=== PATIENT | male | born 1950 | race Caucasian/White ===

== ENCOUNTER 2019-08-09 11:10 | Emergency (ER) | payer MEDICARE, OTHER, SELFPAY ==
[2019-08-09] VITALS (9 sets, daily range): BP systolic 160–185; BP diastolic 57–67; PULSE 55–63; RESP 12–21; TEMP 36.6; O2SAT 91–100; BMI 26.5
--- NOTE | 2019-08-09 11:33 | PC.NURSE ---
reports dialysis today pre weight 70.2 kg post weight 67.9kg. at [place].
--- NOTE | 2019-08-09 11:49 | ED_ITS ---
HPI - SOB/Dyspnea General Chief Complaint: Shortness of Breath/Dyspnea Stated Complaint: pain in left thigh,cough Time Seen by Provider: 08/09/19 11:37 Source: patient Mode of arrival: Family Vehicle Limitations: no limitations History of Present Illness HPI Narrative: Patient is a 69-year-old male with history of hemodialysis, peripheral vascular disease, coronary artery disease hypertension, presenting today with increasing shortness of breath and left hip pain. He flew here from [place] he did arrange for dialysis to happen while he is here he had dialysis today. However he is having increasing shortness of breath and cough. He denies fever or chills. He also having worsening left leg pain he denies any falls. He says he has peripheral vascular disease for which he takes Plavix for. Pain is worse in his thigh. It is worse when he is walking but continues to have pain now. He denies his foot being cold. Related Data Home Medications Medication Instructions Recorded Confirmed Lactobac #2-Bifido #1-S. therm 1 cap PO BID 08/09/19 08/09/19 [Visbiome] albuterol sulfate [Ventolin HFA] 1 puff INHALATION Q6H PRN 08/09/19 08/09/19 amlodipine 10 mg PO DAILY 08/09/19 08/09/19 aspirin 81 mg PO MOWEFR 08/09/19 08/09/19 atorvastatin 80 mg PO DAILY 08/09/19 08/09/19 cinacalcet 60 mg PO DAILY 08/09/19 08/09/19 clopidogrel 75 mg PO DAILY 08/09/19 08/09/19 fluticasone furoate-vilanterol 1 inh INHALATION DIRECTED 08/09/19 08/09/19 [Breo Ellipta] fluticasone propionate [Flovent 1 inh INHALATION BID 08/09/19 08/09/19 Diskus] ipratropium bromide 1 spray INTRANASAL DIRECTED 08/09/19 08/09/19 lanthanum 1,000 mg PO PC 08/09/19 08/09/19 levothyroxine 150 mcg PO DAILY 08/09/19 08/09/19 lisinopril 10 mg PO DAILY 08/09/19 08/09/19 melatonin 2 tab PO BEDTIME 08/09/19 08/09/19 metoprolol succinate 50 mg PO DAILY 08/09/19 08/09/19 pantoprazole 40 mg PO DAILY 08/09/19 08/09/19 triamcinolone acetonide 1 applic TOPICAL DIRECTED 08/09/19 08/09/19 Previous Rx's Medication Instructions Recorded hydrocodone-acetaminophen [Friedens] 1 tab PO Q6H PRN #10 tab 08/09/19 Allergies Allergy/AdvReac Type Severity Reaction Status Date / Time contrast dye Allergy Severe Swelling Uncoded 08/09/19 12:07 of Lip/Tongue/Throat Review of Systems Review of Systems ROS Unobtainable: All systems reviewed & are unremarkable except as noted in HPI and below Constitutional Constitutional: Denies chills, Denies fatigue and Denies fever(s) Eyes Eyes: Denies change in vision, Denies eye discharge, Denies irritation and Denies loss of vision ENT Ears, Nose, Mouth, and Throat: Denies change in voice, Denies neck pain and Denies sore throat Cardiovascular Cardiovascular: Denies chest pain, Denies syncope, Denies rapid heart rate and Reports dyspnea Respiratory Respiratory: Reports as per HPI, Reports cough and Reports dyspnea Gastrointestinal Gastrointestinal: Denies abdominal pain, Denies change in bowel habits, Denies diarrhea, Denies nausea and Denies vomiting Genitourinary Genitourinary: Denies hematuria, Denies flank pain, Denies urinary incontinence and Denies urinary urgency Musculoskeletal Musculoskeletal: Denies neck pain Integumentary/Breasts Skin/Breast: Denies pruritus, Denies erythema, Denies rash and Denies wounds Neurologic Neurologic: Denies syncope and Denies loss of vision Endocrine Endocrine: Denies fatigue Patient History Medical History Anxiety (Acute) Bipolar 1 disorder (Acute) C. difficile colitis (Acute) CHF (congestive heart failure) (Acute) COPD (chronic obstructive pulmonary disease) (Acute) End stage renal disease on dialysis (Acute) Hypothyroid (Acute) Peripheral vascular disease (Acute) Social History Smoking Status: Former smoker alcohol intake frequency: 0-2 drinks per day Substance Use Type: does not use Exam Initial Vital Signs Initial Vital Signs: Vital Signs Temperature 97.9 F 08/09/19 11:19 Pulse Rate 58 L 08/09/19 11:19 Respiratory Rate 18 08/09/19 11:19 Blood Pressure 168/67 H 08/09/19 11:19 Pulse Oximetry 100 08/09/19 11:19 GENERAL: Alert chronically ill male HEENT: Head atraumatic,EOMI, pupils reactive, face symmetric CARDIOVASCULAR: Regular rate and rhythm without murmurs, rubs or gallops. Scar noted on chest RESPIRATORY: Breath sounds equal bilaterally, no wheezes rales or rhonchi. ABDOMEN: Soft, nontender. Normoactive bowel sounds all 4 quadrants. No guarding or rebound. EXTREMITIES: Normal range of motion, no clubbing or edema. Neurovascularly intact Legs are equal length he has a strong palpable pedal pulse in his left foot foot is warm and dry. Mild pain to left hip to palpation. NEUROLOGICAL: Alert and oriented x4.Normal gait and speech. Cranial nerves II through XII grossly intact. SKIN: Warm, dry, no laceration, no petechiae, no rashes or lesions. Course Orders Ordered: ED Orders 08/09/19 11:52 B Type Natriuretic Peptide Stat Complete Blood Count AUTO DIFF Stat Comprehensive Metabolic Panel Stat Magnesium Stat Partial Thromboplastin Time Stat Procalcitonin Stat Prothrombin Time INR Stat Troponin & CK Cardiac Panel Stat 08/09/19 11:59 Consult to Respiratory Therapy Evaluate & Treat 08/09/19 12:00 XR chest 1V Stat 08/09/19 12:02 XR hip w pel if done LT 2V Stat 08/09/19 12:20 Lactate (Lactic Acid) Stat 08/09/19 12:28 Blood Culture Stat 08/09/19 14:33 CT angio chest PE protocol Stat 08/09/19 15:36 US arterial duplex LE LT Stat Discontinued Medications Albuterol (Ventolin Hfa Prepack) 1 box MISC SEEINSTR ONE Stop: 08/09/19 13:11 Last Admin: 08/09/19 13:52 Dose: 1 box Documented by: EL Morphine Sulfate (Morphine) 2 mg IV NOW ONE Stop: 08/09/19 15:40 Last Admin: 08/09/19 15:50 Dose: 2 mg Documented by: RADHA Consultations Time: 14:22 Vital Signs Vital signs: Vital Signs - 8 hr 08/09/19 11:19 08/09/19 13:03 08/09/19 13:05 Temperature 97.9 F Pulse Rate 58 L 57 L 55 L Respiratory Rate 18 20 14 Blood Pressure 168/67 H Blood Pressure [Right Arm] 177/62 H 177/62 H Pulse Oximetry 100 95 93 08/09/19 13:50 08/09/19 13:52 08/09/19 14:20 Temperature Pulse Rate 57 L 59 L Respiratory Rate 19 18 Blood Pressure Blood Pressure [Right Arm] 162/61 H 178/62 H Pulse Oximetry 93 94 92 08/09/19 15:49 08/09/19 16:30 08/09/19 17:10 Temperature Pulse Rate 57 L 63 62 Respiratory Rate 12 21 20 Blood Pressure 175/66 H Blood Pressure [Right Arm] 185/59 H 160/57 H Pulse Oximetry 91 94 95 MDM - SOB/Dyspnea Lab Data Attestation: I reviewed the patient's lab results. Result diagrams: 08/09/19 11:52 08/09/19 11:52 Labs: Lab Results 08/09/19 08/09/19 08/09/19 Range/Units 11:52 11:52 11:52 WBC 4.9 (4.5-11.0) X10^3/uL RBC 3.31 L (4.5-5.9) X10^6/uL Hgb 10.3 L (13.5-17.5) g/dL Hct 30.4 L (41-53) % MCV 91.8 (80-100) fL MCH 31.1 (26-34) PG MCHC 33.9 (30-36) % RDW 13.9 (11.6-14.8) % Plt Count 191 (150-400) X10^3/uL Neut % (Auto) 72.0 (50-75) % Lymph % (Auto) 14.9 L (25-40) % [place] % (Auto) 10.0 (3-14) % Eos % (Auto) 2.5 (2-4) % Baso % (Auto) 0.6 (0-2) % Neut # (Auto) 3600 (3171-0308) /uL Lymph # (Auto) 700 L (0408-8648) /uL [place] # (Auto) 500 (0-900) /uL Eos # (Auto) 100 (0-450) /uL Baso # (Auto) 0 (0-100) /uL PT 13.2 H (10.1-12.7) SECONDS INR 1.1 (0.9-1.3) APTT 38 H (26.4-36.2) SECONDS Sodium (137-145) mmol/L Potassium (3.4-5.1) mmol/L Chloride (98-107) mmol/L Carbon Dioxide (22-32) mmol/L BUN (9-20) mg/dL Creatinine (0.66-1.25) mg/dL Estimated GFR (>60) mL/min BUN/Creatinine Ratio (6-22) Glucose (80-110) mg/dL Lactate (0.7-2.1) mmol/L Calcium (8.4-10.2) mg/dL Magnesium 2.0 (1.6-2.3) mg/dL Total Bilirubin (0.2-1.3) mg/dL AST (17-59) IU/L ALT (<50) IU/L Alkaline Phosphatase (38-126) U/L Total Creatine Kinase 44 L (55-170) U/L CK-MB (CK-2) TNP CK-MB (CK-2) Rel Index TNP Troponin I < 0.012 (0.01-0.034) ng/mL B-Natriuretic Peptide 375 H (<100) Total Protein (6.3-8.2) g/dL Albumin (3.5-5.0) g/dL Globulin (1.7-4.1) g/dL Albumin/Globulin Ratio (1.0-2.8) Procalcitonin (<0.5) ng/mL 08/09/19 08/09/19 08/09/19 Range/Units 11:52 11:52 12:20 WBC (4.5-11.0) X10^3/uL RBC (4.5-5.9) X10^6/uL Hgb (13.5-17.5) g/dL Hct (41-53) % MCV (80-100) fL MCH (26-34) PG MCHC (30-36) % RDW (11.6-14.8) % Plt Count (150-400) X10^3/uL Neut % (Auto) (50-75) % Lymph % (Auto) (25-40) % [place] % (Auto) (3-14) % Eos % (Auto) (2-4) % Baso % (Auto) (0-2) % Neut # (Auto) (5364-2747) /uL Lymph # (Auto) (3955-9185) /uL [place] # (Auto) (0-900) /uL Eos # (Auto) (0-450) /uL Baso # (Auto) (0-100) /uL PT (10.1-12.7) SECONDS INR (0.9-1.3) APTT (26.4-36.2) SECONDS Sodium 140 (137-145) mmol/L Potassium 3.5 (3.4-5.1) mmol/L Chloride 91 L (98-107) mmol/L Carbon Dioxide 34 H (22-32) mmol/L BUN 17 (9-20) mg/dL Creatinine 2.90 H (0.66-1.25) mg/dL Estimated GFR 21.7 L (>60) mL/min BUN/Creatinine Ratio 5.9 L (6-22) Glucose 87 (80-110) mg/dL Lactate 0.9 (0.7-2.1) mmol/L Calcium 9.6 (8.4-10.2) mg/dL Magnesium (1.6-2.3) mg/dL Total Bilirubin 0.9 (0.2-1.3) mg/dL AST 26 (17-59) IU/L ALT 18 (<50) IU/L Alkaline Phosphatase 483 H (38-126) U/L Total Creatine Kinase (55-170) U/L CK-MB (CK-2) CK-MB (CK-2) Rel Index Troponin I (0.01-0.034) ng/mL B-Natriuretic Peptide (<100) Total Protein 7.5 (6.3-8.2) g/dL Albumin 4.8 (3.5-5.0) g/dL Globulin 2.7 (1.7-4.1) g/dL Albumin/Globulin Ratio 1.8 (1.0-2.8) Procalcitonin 0.43 (<0.5) ng/mL Imaging Data Chest x-ray: Radiologist's impression: PROCEDURE: XR CHEST 1V INDICATIONS: sob TECHNIQUE: One view of the chest was acquired. COMPARISON: None. FINDINGS: Surgical changes and devices: Post median sternotomy and aortic valve replacement. Left subclavian and probable right brachiocephalic artery stents. Lungs and pleura: Lungs appear clear. Blunting of the costophrenic angles rais es the possibility of trace pleural effusions. No pneumothorax. Mediastinum: Mediastinal contours appear normal. Heart size is prominent. Bones and chest wall: No suspicious bony lesions. Overlying soft tissues appear unremarkable. IMPRESSION: No acute cardiopulmonary abnormality. Dictated by: Mauro Chua M.D. on 08/09/2019 at 13:11 left hip: Radiologist's impression: PROCEDURE: XR HIP W PEL IF DONE LT 2V INDICATIONS: pain TECHNIQUE: AP pelvis and left hip radiograph. COMPARISON: None. FINDINGS: Bones: No fractures or dislocations identified. Osteopenia. No suspicious bony lesions. The visualized pelvic ring appears intact. Mild bilateral hip joint space narrowing. Soft tissues: No suspicious soft tissue calcifications or masses. Increased stool burden. Scattered calcifications in the stool. A left common femoral artery stent. Right femoral artery and profunda artery stents. Multiple surgical clips in the right groin. IMPRESSION: No fracture or dislocation seen. Mild to moderate osteoarthritis. Dictated by: Mauro Chua M.D. on 08/09/2019 at 13:09 Approved by: Mauro Chua M.D. on 08/09/2019 at 13:11 CT scan - chest: Radiologist's impression: PROCEDURE: CT ANGIO CHEST PE PROTOCOL INDICATIONS: shortness of breath TECHNIQUE: After the administration of intravenous contrast, 2 mm thick sections acquired from the pulmonary apices to the posterior costophrenic angles. 3-dimensional maximum intensity projection (MIP) coronal and sagittal reformats were then acquired through the thorax. For radiation dose reduction, the following was used: automated exposure co ntrol, adjustment of mA and/or kV according to patient size. COMPARISON: [facility], DANNY, XR CHEST 1V, 08/09/2019, 12:28. FINDINGS: Image quality: Diagnostic. Pulmonary arteries: Pulmonary arteries are normal in size, and demonstrate no intraluminal filling defects to suggest central pulmonary embolism. Lungs and pleura: Small to moderate size bilateral pleural effusions are evident. The effusion within the upper portion of the posterior right lung may potentially be partially loculated. Corresponding mild bibasilar atelectasis is evident along the dependent aspects of the lungs. Groundglass attenuation is evident within the lungs diffusely. There is bronchiectasis evident. Scattered calcified granulomas are appreciated. No lung mass or definite soft tissue pulmonary nodule is identified. There is no pneumothorax. Mediastinum: The heart is enlarged. There is no significant pericardial effusion. Coronary artery atherosclerosis is present. Thoracic aorta is normal in caliber and enhancement. Multiple borderline prominent lymph nodes are present within it the mediastinum. The largest measures up to approximately 1.3 cm and is located anterior to the mendez (to the right of midline). Additional smaller mediastinal lymph nodes are present. Thickening of the wall of the esophagus is present. There is a small hiatal hernia. Bones and chest wall: No suspicious bony lesions. Ribs and thoracic spine appear intact throughout. Prominent sclerosis involving every vertebral body is identified with associated moderate to severe degenerative changes. There are normal intervertebral disc spaces are appreciated. Bony fusion at is also evident involving the spinous processes of the breasts explained. Median sternotomy changes are present. Thyroid gland not adequately evaluated. No axillary or supraclavicular adenopathy. A long segment endovascular stent involving the left subclavian, axillary, and brachial arteries is incidentally noted. There is a kink within the region of the axillary artery, which is probably positional. Abdomen: Mild increased attenuation is identified involving the upper retroperitoneal fat adjacent to the upper portion of the pancreas, which is not adequately evaluated. The spleen may be enlarged. Prominent atherosclerosis involving the branch vessels of the included portions of the upper abdominal aorta are present. IMPRESSION: 1. No evidence of pulmonary emboli. 2. Small bilateral effusions and associated atelectasis. 3. Diffuse groundglass attenuation within the lungs may represent pulmonary edema. Hypersensitivity pneumonitis could potentially have this appearance. 3. Mild bronchiectasis. 4. Cardiomegaly. 5. Mildly prominent mediastinal lymph nodes are of uncertain origin. Followup CT chest imaging with contrast in 3 months is recommended to reevaluate these lymph nodes. 6. Thickening of the wall of the esophagus is suspicious for esophagitis. Upper endoscopy may be helpful for diagnostic purposes, if indicated. 7. Small hiatal hernia. 8. Probable splenomegaly. 9. Abnormal sclerosis involving the entire imaged spine and additional adjacent bones is nonspecific but suspicious for a possible metabolic bone disease. Sclerosis can have this appearance. However, the possibility of diffuse metastatic disease or multiple myeloma is difficult to exclude. Dictated by: Bill Smith M.D. on 08/09/2019 at 14:02 arterial doppler left leg: Radiologist's impression: PROCEDURE: US ARTERIAL DUPLEX LE LT INDICATIONS: PAIN IN THIGH, KNOWN PERIPHERAL VASCULAR DISEASE TECHNIQUE: Color and pulse Doppler interrogation was performed of the left lower extremity arterial system, with image documentation. COMPARISON: None. FINDINGS: Moderate to severe areas of atherosclerotic irregularity are identified throughout the left lower extremity arterial system. No occlusions are identified. Doubling of flow velocity within the distal superficial femoral artery is identified suggesting that they're likely is an area of moderate to high-grade narrowing within this region. No endovascular stents are appreciated. Biphasic waveforms are present throughout. Common femoral artery: 160 cm/sec, with biphasic flow. Deep femoral artery: 146 cm/sec, with biphasic flow. Proximal superficial femoral artery: 116 cm/sec, with biphasic flow. Mid superficial femoral artery: 102 cm/sec, with biphasic flow. Distal superficial femoral artery: 204 cm/sec, with biphasic flow. Popliteal artery: 160 cm/sec, with biphasic flow. Posterior tibial artery: 70 cm/sec, with biphasic flow. Anterior tibial artery/dorsalis pedis: 56 cm/sec, with biphasic flow. IMPRESSION: 1. Moderate to severe atherosclerosis of the left lower jugular arterial system without occlusion. 2. Elevated flow velocity within the distal superficial femoral artery is suggestive of a focal area of moderate to high-grade narrowing. Dictated by: Bill Smith M.D. on 08/09/2019 at 15:37 ECG Data Attestation: I personally reviewed and interpreted this ECG as follows: Prior ECG tracings: not available for review Interpretation: Sinus rhythm rate 53 right bundle branch block no ST elevations no T-wave inversions no ST depression-similar to previous EKGs from [place]. MDM Narrative Medical decision making narrative: I have spoken with patient's public health representative in the [place] in regards to doing a PE study. She understands that he has had dialysis today and will not have it again in till Monday she agrees doing whatever is needed. The patient does not have any pneumonia or pulmonary edema on his x-ray. Blood work overall is reassuring. Patient is complaining mostly of left leg pain. His left foot is warm and dry with a palpable pedal pulse. Ultrasound does show that he has some high-grade stenosis however he has known peripheral vascular disease and is on Plavix. He is returning to [place] in 4 days. This time there is no emergent need for vascular surgery consultation or intervention. Have explained this multiple times to the patient. He is given 2 mg of morphine for pain and I will write her prescription of Friedens. I strongly recommend that he see vascular surgery in [place] and follow up with his PCP. At this time no indication for any antibiotics. PE study is actually negative. Improved on morphine.. Discharge Plan Departure Patient Disposition: Home Clinical Impression: Peripheral vascular disease Discharge Date/Time: 08/09/19 17:10 Instructions: Peripheral Artery Disease Activity Restrictions/Additional Instructions: *You have been diagnosed with you have peripheral vascular disease *What to do: You had a CT for pulmonary embolism today which was negative. Your public health representative Dr. maris márquez is aware of the situation. You should continue dialysis as previously scheduled for Monday. There is no pneumonia or other cause of shortness of breath at this time. *Continue to take medications as directed Friedens 1 tablet every 6 hours only if needed for severe pain *Follow up with your primary care provider in 2-3 days *Return to ER if you should have increasing shortness of breath, chest leg pain or any new, worsening or concerning symptoms CONTROLLED SUBSTANCE DISCHARGE (Narcotoic/benzodiazepine/Flexeril/Phenergan) 1. You have been prescribed narcotic medications, it does have ac etaminophen/Tylenol/paracetamol in it so do not take extra Tylenol or Tylenol containing products 2. Please understand that we cannot provide further refills of narcotics, benzodiazepines or controlled substances through the ED and her pain management will need to be through your provider. 3. While on these medications you cannot drive or operate heavy machinery. 4. You cannot sign legal documents or perform any duties such as this. 5. As long as you're taking opiate pain medications he should also be taking a stool softener such as Colace, Dulcolax, MiraLAX or prune juice, to help avoid constipation. Prescriptions: New hydrocodone-acetaminophen [Friedens] 5-325 mg tablet 1 tab PO Q6H PRN (Reason: pain) Qty: 10 RF: 0 No Action atorvastatin 80 mg tablet 80 mg PO DAILY RF: 0 metoprolol succinate 50 mg tablet extended release 24 hr 50 mg PO DAILY RF: 0 clopidogrel 75 mg tablet 75 mg PO DAILY RF: 0 amlodipine 5 mg tablet 10 mg PO DAILY RF: 0 triamcinolone acetonide 0.1 % cream 1 applic TOPICAL DIRECTED RF: 0 pantoprazole 40 mg tablet,delayed release (DR/EC) 40 mg PO DAILY RF: 0 albuterol sulfate [Ventolin HFA] 90 mcg/actuation HFA aerosol inhaler 1 puff INHALATION Q6H PRN (Reason: Shortness Of Breath) RF: 0 ipratropium bromide 42 mcg (0.06 %) spray,non-aerosol 1 spray INTRANASAL DIRECTED RF: 0 cinacalcet 60 mg tablet 60 mg PO DAILY RF: 0 lanthanum 1,000 mg tablet,chewable 1,000 mg PO PC RF: 0 Breo Ellipta 100-25 mcg/dose blister with device 1 inh INHALATION DIRECTED RF: 0 aspirin 81 mg Tablet,Delayed Release (Dr/Ec) 81 mg PO MOWEFR RF: 0 Flovent Diskus 100 mcg/actuation Blister With Device 1 inh INHALATION BID RF: 0 lisinopril 10 mg tablet 10 mg PO DAILY RF: 0 levothyroxine 150 mcg tablet 150 mcg PO DAILY RF: 0 Visbiome 112.5 billion cell Capsule 1 cap PO BID RF: 0 melatonin 2 tab PO BEDTIME RF: 0
--- NOTE | 2019-08-09 12:00 | DI.RAD.S_ITS ---
PROCEDURE: XR CHEST 1V INDICATIONS: sob TECHNIQUE: One view of the chest was acquired. COMPARISON: None. FINDINGS: Surgical changes and devices: Post median sternotomy and aortic valve replacement. Left subclavian and probable right brachiocephalic artery stents. Lungs and pleura: Lungs appear clear. Blunting of the costophrenic angles raises the possibility of trace pleural effusions. No pneumothorax. Mediastinum: Mediastinal contours appear normal. Heart size is prominent. Bones and chest wall: No suspicious bony lesions. Overlying soft tissues appear unremarkable. IMPRESSION: No acute cardiopulmonary abnormality. Dictated by: Mauro Chua M.D. on 08/09/2019 at 13:11 Approved by: Mauro Chua M.D. on 08/09/2019 at 13:13
--- NOTE | 2019-08-09 12:02 | DI.RAD.S_ITS ---
PROCEDURE: XR HIP W PEL IF DONE LT 2V INDICATIONS: pain TECHNIQUE: AP pelvis and left hip radiograph. COMPARISON: None. FINDINGS: Bones: No fractures or dislocations identified. Osteopenia. No suspicious bony lesions. The visualized pelvic ring appears intact. Mild bilateral hip joint space narrowing. Soft tissues: No suspicious soft tissue calcifications or masses. Increased stool burden. Scattered calcifications in the stool. A left common femoral artery stent. Right femoral artery and profunda artery stents. Multiple surgical clips in the right groin. IMPRESSION: No fracture or dislocation seen. Mild to moderate osteoarthritis. Dictated by: Mauro Chua M.D. on 08/09/2019 at 13:09 Approved by: Mauro Chua M.D. on 08/09/2019 at 13:11
[2019-08-09 12:29] LABS: Add Manual Diff / Slide Review NO; Basophils Absolute Auto 0 /uL (0-100); Basophils Percent Auto 0.6 % (0-2); Eosinophils Absolute Auto 100 /uL (0-450); Eosinophils Percent Auto 2.5 % (2-4); Hematocrit 30.4 % (41-53); Hemoglobin 10.3 g/dL (13.5-17.5); Lymphocytes Absolute Auto 700 /uL (1100-4500); Lymphocytes Percent Auto 14.9 % (25-40); Mean Corpuscular HGB Conc 33.9 % (30-36); Mean Corpuscular Hemoglobin 31.1 PG (26-34); Mean Corpuscular Volume 91.8 fL (80-100); Monocytes Absolute Auto 500 /uL (0-900); Neutrophils Absolute Auto 3600 /uL (1500-7000); Platelet Count 191 X10^3/uL (150-400); Red Blood Cell Count 3.31 X10^6/uL (4.5-5.9); Red Cell Distribution Width 13.9 % (11.6-14.8); White Blood Cell Count 4.9 X10^3/uL (4.5-11.0)
[2019-08-09 12:36] LABS: INR 1.1 (0.9-1.3); Prothrombin Time 13.2 SECONDS (10.1-12.7)
[2019-08-09 12:39] LABS: PTT Partial Thromboplastin Tim 38 SECONDS (26.4-36.2)
[2019-08-09 12:44] LABS: Creatine Kinase 44 U/L (55-170)
[2019-08-09 12:45] LABS: Lactate (Lactic Acid) 0.9 mmol/L (0.7-2.1)
[2019-08-09 12:45] LABS: Alanine Aminotransferase 18 IU/L (<50); Albumin 4.8 g/dL (3.5-5.0); Albumin Globulin Ratio 1.8 (1.0-2.8); Alkaline Phosphatase 483 U/L (38-126); Aspartate Aminotransferase 26 IU/L (17-59); BUN Creatinine Ratio 5.9 (6-22); Bilirubin Total 0.9 mg/dL (0.2-1.3); Blood Urea Nitrogen 17 mg/dL (9-20); Calcium 9.6 mg/dL (8.4-10.2); Carbon Dioxide 34 mmol/L (22-32); Chloride 91 mmol/L (98-107); Estimated Glomerular Filt Rate 21.7 mL/min (>60); Globulin 2.7 g/dL (1.7-4.1); Glucose 87 mg/dL (80-110); HEMOLYSIS < 15 (0-50); Potassium 3.5 mmol/L (3.4-5.1); Sodium 140 mmol/L (137-145); Total Protein 7.5 g/dL (6.3-8.2)
[2019-08-09 12:49] LABS: B Type Natriuretic Peptide 375 (<100)
[2019-08-09 12:56] LABS: Troponin I < 0.012 ng/mL (0.01-0.034)
[2019-08-09 13:13] LABS: Procalcitonin 0.43 ng/mL (<0.5)
[2019-08-09] MEDS: ALBUTEROL HFA PREPACK 1 BOX MISC (13:52)
--- NOTE | 2019-08-09 14:33 | DI.CT.S_ITS ---
PROCEDURE: CT ANGIO CHEST PE PROTOCOL INDICATIONS: shortness of breath TECHNIQUE: After the administration of intravenous contrast, 2 mm thick sections acquired from the pulmonary apices to the posterior costophrenic angles. 3-dimensional maximum intensity projection (MIP) coronal and sagittal reformats were then acquired through the thorax. For radiation dose reduction, the following was used: automated exposure control, adjustment of mA and/or kV according to patient size. COMPARISON: [facility], CR, XR CHEST 1V, 08/09/2019, 12:28. FINDINGS: Image quality: Diagnostic. Pulmonary arteries: Pulmonary arteries are normal in size, and demonstrate no intraluminal filling defects to suggest central pulmonary embolism. Lungs and pleura: Small to moderate size bilateral pleural effusions are evident. The effusion within the upper portion of the posterior right lung may potentially be partially loculated. Corresponding mild bibasilar atelectasis is evident along the dependent aspects of the lungs. Groundglass attenuation is evident within the lungs diffusely. There is bronchiectasis evident. Scattered calcified granulomas are appreciated. No lung mass or definite soft tissue pulmonary nodule is identified. There is no pneumothorax. Mediastinum: The heart is enlarged. There is no significant pericardial effusion. Coronary artery atherosclerosis is present. Thoracic aorta is normal in caliber and enhancement. Multiple borderline prominent lymph nodes are present within it the mediastinum. The largest measures up to approximately 1.3 cm and is located anterior to the mendez (to the right of midline). Additional smaller mediastinal lymph nodes are present. Thickening of the wall of the esophagus is present. There is a small hiatal hernia. Bones and chest wall: No suspicious bony lesions. Ribs and thoracic spine appear intact throughout. Prominent sclerosis involving every vertebral body is identified with associated moderate to severe degenerative changes. There are normal intervertebral disc spaces are appreciated. Bony fusion at is also evident involving the spinous processes of the breasts explained. Median sternotomy changes are present. Thyroid gland not adequately evaluated. No axillary or supraclavicular adenopathy. A long segment endovascular stent involving the left subclavian, axillary, and brachial arteries is incidentally noted. There is a kink within the region of the axillary artery, which is probably positional. Abdomen: Mild increased attenuation is identified involving the upper retroperitoneal fat adjacent to the upper portion of the pancreas, which is not adequately evaluated. The spleen may be enlarged. Prominent atherosclerosis involving the branch vessels of the included portions of the upper abdominal aorta are present. IMPRESSION: 1. No evidence of pulmonary emboli. 2. Small bilateral effusions and associated atelectasis. 3. Diffuse groundglass attenuation within the lungs may represent pulmonary edema. Hypersensitivity pneumonitis could potentially have this appearance. 3. Mild bronchiectasis. 4. Cardiomegaly. 5. Mildly prominent mediastinal lymph nodes are of uncertain origin. Followup CT chest imaging with contrast in 3 months is recommended to reevaluate these lymph nodes. 6. Thickening of the wall of the esophagus is suspicious for esophagitis. Upper endoscopy may be helpful for diagnostic purposes, if indicated. 7. Small hiatal hernia. 8. Probable splenomegaly. 9. Abnormal sclerosis involving the entire imaged spine and additional adjacent bones is nonspecific but suspicious for a possible metabolic bone disease. Sclerosis can have this appearance. However, the possibility of diffuse metastatic disease or multiple myeloma is difficult to exclude. Dictated by: Bill Smith M.D. on 08/09/2019 at 14:02 Approved by: Bill Smith M.D. on 08/09/2019 at 14:16
--- NOTE | 2019-08-09 15:36 | DI.US.S_ITS ---
PROCEDURE: US ARTERIAL DUPLEX LE LT INDICATIONS: PAIN IN THIGH, KNOWN PERIPHERAL VASCULAR DISEASE TECHNIQUE: Color and pulse Doppler interrogation was performed of the left lower extremity arterial system, with image documentation. COMPARISON: None. FINDINGS: Moderate to severe areas of atherosclerotic irregularity are identified throughout the left lower extremity arterial system. No occlusions are identified. Doubling of flow velocity within the distal superficial femoral artery is identified suggesting that they're likely is an area of moderate to high-grade narrowing within this region. No endovascular stents are appreciated. Biphasic waveforms are present throughout. Common femoral artery: 160 cm/sec, with biphasic flow. Deep femoral artery: 146 cm/sec, with biphasic flow. Proximal superficial femoral artery: 116 cm/sec, with biphasic flow. Mid superficial femoral artery: 102 cm/sec, with biphasic flow. Distal superficial femoral artery: 204 cm/sec, with biphasic flow. Popliteal artery: 160 cm/sec, with biphasic flow. Posterior tibial artery: 70 cm/sec, with biphasic flow. Anterior tibial artery/dorsalis pedis: 56 cm/sec, with biphasic flow. IMPRESSION: 1. Moderate to severe atherosclerosis of the left lower jugular arterial system without occlusion. 2. Elevated flow velocity within the distal superficial femoral artery is suggestive of a focal area of moderate to high-grade narrowing. Dictated by: Bill Smith M.D. on 08/09/2019 at 15:37 Approved by: Bill Smith M.D. on 08/09/2019 at 15:41
[2019-08-09] MEDS: MORPHINE 2 MG/ML INJ IV (15:50)
--- NOTE | 2019-08-09 16:09 | PC.NURSE ---
pt ambulated to ER room without difficulty with his walker.
--- NOTE | 2019-08-09 16:49 | PC.NURSE ---
1/2 egg sandwich, cranberry juice, peaches. and tomato soup to pt.. Dr. Judi lundberg'tiffanie for patient to eat.
== END 2019-08-09 17:10 | disposition home or self-care (01) ==
PROVIDERS: Emergency Provider Emergency Medicine
DX: I73.89 Other specified peripheral vascular diseases (principal); R06.02 Shortness of breath; M25.552 Pain in left hip; R05 Cough
CPT/HCPCS: 36415; 71045; 71275; 73502; 80053; 82550; 83605; 83735; 83880; 84145; 84484; 85025; 85610; 85730; 87040; 93005; 93010; 93041; 93926; 96374; 99284; 99285; J2270; Q9967